=== PATIENT | male | born 1980 | race Caucasian/White ===

== ENCOUNTER 2016-06-13 10:46 | Emergency (ER) | payer MEDICAID ==
[~2016-06-13] VITALS: Ht 177.8 cm; Wt 74.8 kg
[2016-06-13 10:58] VITALS: BP_SYST 135
[2016-06-13 11:49] LABS: BILIRUBIN,URINE NEGATIVE (NEGATIVE); BLOOD, URINE NEGATIVE (NEGATIVE); CLARITY/URINE SL CLOUDY (CLEAR); COLOR,URINE ORANGE (YELLOW); GLUCOSE,URINE NEGATIVE (NEGATIVE); KETONES,URINE 1+ (NEGATIVE); LEUKOCYTE ESTERASE ,URINE NEGATIVE (NEGATIVE); NITRITE, URINE NEGATIVE (NEGATIVE); PROTEIN URINE NEGATIVE (NEGATIVE); UROBILINOGEN,URINE 0.2 (0.2-1.0)
[2016-06-13] MEDS ORDERED: KETOROLAC TROMETHAMINE 60 MG/2 ML VIAL IM ONE (12:30)
[2016-06-13] MEDS ORDERED: DIAZEPAM 10 MG/2 ML DISP.SYRIN IM ONE (12:30)
[2016-06-13 13:10] VITALS: BP_SYST 130
== END 2016-06-13 13:10 | disposition home or self-care (01) ==
LOC: SED 10:46
DX: M54.5 Low back pain (principal)
CPT/HCPCS: 81003; 96372; 99283; J1885

== ENCOUNTER 2022-01-15 02:49 | Emergency (ER) | payer BC, MEDICAID ==
[~2022-01-15] VITALS: Ht 177.8 cm; Wt 74.8 kg
[2022-01-15 03:00] VITALS: BP_SYST 129
--- NOTE | 2022-01-15 03:00 | NUR ---
Patient triaged and placed in waiting room. VSS and patient appears in no acute distress at this time. Awaiting available bed, and MD notified of need for MSE.
--- NOTE | 2022-01-15 03:35 | NUR ---
Dr Yan examining pt in the triage room.
[2022-01-15] MEDS ORDERED: IPRATROPIUM BROM 0.5 MG/2.5 ML VIAL.NEB (ATROVENT) INH ONE (03:45)
[2022-01-15] MEDS ORDERED: ALBUTEROL SULFATE 0.083% 2.5 MG/3 ML VIAL.NEB INH ONE (03:45)
--- NOTE | 2022-01-15 03:45 | NUR ---
Patient to [facility].
--- NOTE | 2022-01-15 03:50 | NUR ---
Breathing treatment inprogress at this time in the [address].
--- NOTE | 2022-01-15 04:25 | NUR ---
DR Farrah bush pt.
[2022-01-15] MEDS ORDERED: PRED20TA PO (04:29)
[2022-01-15] MEDS ORDERED: VIS25 PO (04:29)
--- NOTE | 2022-01-15 04:35 | NUR ---
Patient given written and verbal discharge instructions and verbalizes understanding. ER MD discussed with patient the results and treatment provided. Patient in stable condition. ID arm band removed. Rx of Viataril/Atarax and Prednisone given. Patient educated on pain management and to follow up with PMD. Pain Scale 0/10. Opportunity for questions provided and answered. Medication side effect fact sheet provided.
[2022-01-15 04:38] VITALS: BP_SYST 130
== END 2022-01-15 04:38 | disposition home or self-care (01) ==
LOC: SED 02:49
DX: R06.02 Shortness of breath (principal); R07.9 Chest pain, unspecified; Z79.899 Other long term (current) drug therapy
CPT/HCPCS: 94640; 99283; J7613

== ENCOUNTER 2022-02-20 02:55 | Emergency (ER) | payer BC ==
[~2022-02-20] VITALS: Ht 170.2 cm; Wt 76.2 kg
[~2022-02-20 02:55] MED LIST: PRED20TA PO; VIS25 PO
[2022-02-20 03:05] VITALS: BP_SYST 155
[2022-02-20] MEDS ORDERED: OMEP20TA20 PO (03:12)
[2022-02-20 03:38] VITALS: BP_SYST 155
== END 2022-02-20 03:35 | disposition home or self-care (01) ==
LOC: SED 02:55
DX: R68.2 Dry mouth, unspecified (principal); T45.0X5A Adverse effect of antiallergic and antiemetic drugs, initial encounter; R13.10 Dysphagia, unspecified; Z79.899 Other long term (current) drug therapy
CPT/HCPCS: 99283

== ENCOUNTER 2022-07-31 21:45 | Emergency (ER) | payer BC, OTHER ==
[~2022-07-31] VITALS: Ht 177.8 cm; Wt 78.0 kg
[~2022-07-31 21:45] MED LIST changes: +OMEP20TA20 PO
[2022-07-31 21:59] VITALS: BP_SYST 118
--- NOTE | 2022-07-31 22:00 | NUR ---
Patient triaged, VSS and patient appears in no acute distress at this time. Accompanied by EMR , awaiting available bed, and MD notified of need for MSE.
--- NOTE | 2022-07-31 23:40 | NUR ---
,Patient to ER chair 1 for evaluation.
[2022-07-31] MEDS ORDERED: KETOROLAC TROMETHAMINE 60 MG/2 ML VIAL IM ONE (23:45)
--- NOTE | 2022-07-31 23:45 | NUR ---
ER Dr. Yan at bedside examining patient.
--- NOTE | 2022-07-31 23:57 | NUR ---
medicated per md orders
[2022-08-01] MEDS ORDERED: MORPHINE 4 MG INJ. 4 MG/ML VIAL IM ONE
[2022-08-01] MEDS ORDERED: HYDR-3927 PO (00:19)
[2022-08-01 00:22] VITALS: BP_SYST 121
--- NOTE | 2022-08-01 00:22 | NUR ---
Patient given written and verbal discharge instructions and verbalizes understanding. ER MD discussed with patient the results and treatment provided. Patient in stable condition. ID arm band removed. Rx of NORCO given. Patient educated on pain management and to follow up with PMD. Pain Scale 0/10 Opportunity for questions provided and answered. Medication side effect fact sheet provided.
== END 2022-08-01 00:22 | disposition home or self-care (01) ==
LOC: SED 21:45
DX: M54.50 Low back pain, unspecified (principal); R20.0 Anesthesia of skin; Z79.899 Other long term (current) drug therapy
CPT/HCPCS: 99283; 96372; J2270